=== PATIENT | male | born 1995 | race Caucasian/White ===

== ENCOUNTER 2017-06-21 07:20 | Emergency (ER) | payer BC ==
[~2017-06-21] VITALS: Ht 190.5 cm; Wt 72.5 kg
[2017-06-21 07:22] VITALS: TEMP 36.4; Ht 190.5 cm; Wt 72.5 kg
--- NOTE | 2017-06-21 07:57 | EMERGENCY ROOM VISIT NOTE ---
History First contact with patient: 07:33 Chief Complaint: EAR PAIN Stated Complaint: EAR INFECTION/BLEEDING History of Present Illness The patient is a 21 year old male who presents to the Emergency Room with complaints of bleeding from the right ear. The patient reports that he has had discomfort in his right ear for the past several days. He was going to see a doctor today because of the discomfort, but while cleaning the ears this morning with a tissue, notice blood. He denies any recent upper respiratory infection, runny nose, sinus congestion or ear fullness. The patient does report a history of recurrent cerumen impaction. The patient does not use Q- tips. He does occasionally use Debrox. He rates his discomfort a 1 out of 10. The patient denies any recent swimming activity or history of otitis externa. Review of Systems 10 system review was performed and was negative except for pertinent positives and negatives as indicated in history of present illness Past Medical/Surgical History Medical Problems: (1) Kidney stones Surgical Problems: (1) Congenital blocked tear duct Family History FH: cancer FH: diabetes mellitus Social History Smoking Status: Never Smoker Alcohol Use: occasionally Marital Status: single Occupation Status: [employer] student Current/Historical Medications No Active Prescriptions or Reported Meds Physical Exam Vital Signs Date Time Temp Pulse Resp B/P (MAP) Pulse Ox O2 Delivery O2 Flow Rate FiO2 06/21/17 07:22 36.4 62 18 147/83 98 Room Air Physical Exam CONSTITUTIONAL: Healthy and well nourished. Alert and oriented X 3 with positive affect. Patient does not appear in any acute distress. HEENT: Normocephalic, atraumatic. Pupils equal, round and reactive. No facial edema or periaural erythema noted. Examination of the left ear shows mild cerumen accumulation, otherwise TM is intact. Examination of the right ear shows blood and notable external auditory canal erythema. Minimal cerumen is present. The TM is visible without evidence for erythema, bulging, perforation or middle ear effusion. No rhinorrhea. OROPHARYNX: No postnasal bleed or pharyngeal erythema. NECK: Full active range of motion without discomfort. RESPIRATORY: Clear to auscultation bilaterally with no wheezing, crackles, rhonchi or stridor. CARDIOVASCULAR: Regular rate and rhythm with no murmurs, rubs or gallops. INTEGUMENTARY: A facial rash is noted and consistent with acne. Medical Decision & Procedures ED Course Patient history and physical exam were performed. Nurse's notes were reviewed. Vital signs were reviewed and were normal. Examination is consistent with a hemorrhagic otitis externa. The patient was dispensed ciprofloxacin 0.3% solution, and instructed to administer 3 drops every 12 hours for 7 days. He was instructed to keep the ear canal dry while showering. Into any to avoid Q- tip use. Return to the emergency department over the weekend for any progressively worsening pain him a purulent drainage or developing fever. Ibuprofen or Tylenol if needed for additional pain relief. The patient was happy with plan of care, and voiced understanding of all discharge instructions. Medical Decision Blood Pressure Screening Patient's blood pressure: Normal blood pressure Impression Primary Impression: Right otitis externa Departure Information Dispostion Home / Self-Care Prescriptions No Active Prescriptions or Reported Meds Forms HOME CARE DOCUMENTATION FORM, IMPORTANT VISIT INFORMATION Patient Instructions My [facility], ED Otitis Externa Additional Instructions Administer ciprofloxacin 3 drops in right ear every 12 hours for 7 days. Keep ear dry while showering. Ibuprofen 800 mg and/or Tylenol 1000 mg every 8 hours. You may also alternate these medications for more effective pain relief: Ibuprofen --4 HRS--> Tylenol --4 HRS--> ibuprofen --4 HRS--> Tylenol .... Return to the emergency department over the weekend for any progressively worsening symptoms. Seek further ENT reevaluation if symptoms are not improving within the next week. Problem Qualifiers Primary Impression: Right otitis externa Otitis externa type: hemorrhagic Chronicity: acute Qualified Codes: H60.321 - Hemorrhagic otitis externa, right ear
[2017-06-21] MEDS ORDERED: CIPROFLOXACIN HCL 0.3% OP SOLN 2.5 ML BTL OP ONE (08:00)
[2017-06-21 08:06] VITALS: BP 113/62; PULSE 74; O2SAT 98
== END 2017-06-21 08:16 | disposition home or self-care (01) ==
LOC: C.EDB 07:21
DX: H60.321 Hemorrhagic otitis externa, right ear (principal); Z83.3 Family history of diabetes mellitus